=== PATIENT | female | born 1955 | race African-American/Black ===

== ENCOUNTER 2019-02-23 03:32 | Emergency (ER) | payer OTHER ==
[2019-02-23] MEDS ORDERED: NS 0.9% 1000 ML** 1,000 ML IV ONE (03:50)
[2019-02-23] MEDS ORDERED: diPHENhydraMINE IV* 50 MG/ML 1 ml VIAL (BENADRYL) IV ONE (03:50)
[2019-02-23] MEDS ORDERED: methylPREDNISolone 125 MG* 2 ML VIAL IV ONE (03:50)
--- NOTE | 2019-02-23 03:50 | ED ---
Allergic Reaction/Systemic - HPI Summary HPI Summary: A 63 y/o female presents to [facility] with a chief complaint of a possible allergic reaction today since 03:00 today. She reports that her lips and tongue are swelling. She denies eye swelling. She notes some difficulty swallowing, claiming that it feels like there is something in her throat. At triage she rated her pain as a 0/10 in severity. She reports taking Metoprolol and Lisinopril, saying that she has been taking Lisinopril for months. She says that a couple weeks ago her lips swelled up but it went away so she did not come to the ED. - History of Current Complaint Chief Complaint: EDAllergicReaction Time Seen by Provider: 02/23/19 03:44 Hx Obtained From: Patient Onset/Duration: Sudden Onset, Started hours ago, Still Present Timing: Constant Severity Initially: Mild Severity Currently: Mild Pain Intensity: 0 Pain Scale Used: 0-10 Numeric Location: Other - lips and tongue Character: Swelling Aggravating Factor(s): Nothing Alleviating Factor(s): Nothing Associated Signs And Symptoms: Positive: Other: - difficulty swallowing - Allergies/Home Medications Allergies/Adverse Reactions: Allergies Allergy/AdvReac Type Severity Reaction Status Date / Time lisinopril Allergy Airway Verified 02/23/19 03:50 Obstruction PMH/Surg Hx/FS Hx/Imm Hx Cardiovascular History: Reports: Hx Hypertension Denies: Hx Pacemaker/ICD Sensory History: Denies: Hx Hearing Aid Psychiatric History: Denies: Hx Panic Disorder - Surgical History Surgery Procedure, Year, and Place: HYSTERECTOMY Infectious Disease History: No Infectious Disease History: Denies: Traveled Outside the [place] in Last 30 Days - Family History Known Family History: Negative: Blood Disorder - Social History Alcohol Use: None Substance Use Type: Reports: Marijuana Hx Tobacco Use: Yes Smoking Status (MU): Smoker, Current Status Unknown Review of Systems Negative: Fever Eyes: Negative - eye swelling Positive: Other - positive: lip and tongue swelling, difficutly swallowing All Other Systems Reviewed And Are Negative: Yes Physical Exam - Summary Physical Exam Summary: Appearance: -[place] woman in no acute distress Skin: Warm, dry, no obvious rash Eyes: sclera anicteric, no conjunctival pallor ENT: Swelling of lips, particularly left side, Did not appreciate any lingual edema or swelling of soft palate, Voice is slightly dysarthric, at times she appears to cough her own secretions, no stridor or signs of upper airway obstructions. Neck: Supple, nontender Respiratory: Clear to auscultation, no signs of respiratory distress Cardiovascular: Normal S1, S2. No murmurs. Normal distal pulses in tibial and radial bilaterally. Abdomen: Soft, nontender, normal active bowel sounds present Musculoskeletal: Normal, Strength/ROM Intact Neurological: A&Ox3, awake and alert, mentation is normal, speech is fluent and appropriate Psychiatric: affect is normal, does not appear anxious or depressed Triage Information Reviewed: Yes Vital Signs On Initial Exam: Initial Vitals Temp Pulse Resp BP Pulse Ox 97.7 F 65 19 212/100 99 02/23/19 03:35 02/23/19 03:35 02/23/19 03:35 02/23/19 03:35 02/23/19 03:35 Vital Signs Reviewed: Yes Diagnostics - Vital Signs Vital Signs Temp Pulse Resp BP Pulse Ox 02/23/19 03:35 97.7 F 65 19 212/100 99 - Laboratory Result Diagrams: 02/23/19 04:01 02/23/19 04:01 Lab Statement: Any lab studies that have been ordered have been reviewed, and results considered in the medical decision making process. Allergic Reaction Course/Dx - Course Course Of Treatment: A 63 y/o female presents to [facility] with a chief complaint of a possible allergic reaction today since 03:00 today. She reports that her lips and tongue are swelling. The physical exam revealed that the patient is an -[place] woman in no acute distress, has swelling of lips, particularly left side. Did not appreciate any lingual edema or swelling of soft palate. Voice is slightly dysarthric, at times she appears to cough her own secretions, no stridor or signs of upper airway obstructions. In the ED course the patient was given Solu-Medrol IV and Sodium Chloride IV. Blood work and chemistries obtained and are WNL. The patient will be discharged and was instructed to stop taking Lisinopril and follow up with her PCP. The patient is agreeable with this plan. 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 Discharge - Sign-Out/Discharge Documenting (check all that apply): Patient Departure - DC Patient Received Moderate/Deep Sedation with Procedure: No - Discharge Plan Condition: Stable Disposition: HOME Patient Education Materials: Angioedema (ED) Referrals: Adele Marino MD [Primary Care Provider] - Additional Instructions: The trouble you are having is an occasional side effect of the lisinopril you take for your blood pressure. You will have to stop this medication and in the future avoid any medication in this class, called KATTY inhibitors, as well as any medications in a related class of blood pressure medicines called ARBs. The reaction should subside over the next few days as the lisinopril works out of your system. The plasma we gave you tonight will often prevent the reaction from worsening until that happens. If your symptoms worsen return here as I would not expect that. - Billing Disposition and Condition Condition: STABLE Disposition: Home - Attestation Statements Document Initiated by Doris: Yes Documenting Scribe: Jese Akhtar Provider For Whom Doris is Documenting (Include Credential): Lam Miller MD Scribe Attestation: I, Jese Akhtar, scribed for Lam Miller MD on 02/26/19 at 0813. Scribe Documentation Reviewed: Yes Provider Attestation: The documentation as recorded by the Jese villafana accurately reflects the service I personally performed and the decisions made by me, Lam Miller MD Status of Scribkirsten Document: Viewed
[2019-02-23 04:09] LABS: ABS Basophils 0.1 10^3/ul (0-0.2); ABS Eosinophils 0.1 10^3/ul (0-0.6); ABS Monocytes 0.8 10^3/ul (0-0.8); ABS Neutrophils 5.5 10^3/ul (1.5-7.7); Eosinophil % 0.6 %; Hematocrit 44 % (35-47); Hemoglobin 15.3 g/dL (12.0-16.0); Lymphocyte % 38.2 %; Mean Corpuscular HGB Conc 34 g/dL (31-36); Mean Corpuscular Hemoglobin 33 pg (27-31); Mean Corpuscular Volume 97 fL (80-97); Mean Platelet Volume 7.8 fL (7.4-10.4); Nucleated Red Blood Cells % 0.2; Platelet Count 192 10^3/uL (150-450); Red Cell Distribution Width 13 % (10-15); White Blood Count 10.5 10^3/uL (3.5-10.8)
[2019-02-23 04:32] LABS: Albumin 3.5 g/dL (3.2-5.2); Albumin/Globulin Ratio 0.9 (1-3); BUN/Creatinine Ratio 12.9 (8-20); Calcium 9.4 mg/dL (8.6-10.3); EGFR Non-African American 67.8 (>60); Globulin 3.7 g/dL (2-4); Potassium 3.3 mmol/L (3.5-5.0); Total Bilirubin 0.3 mg/dL (0.2-1.0); Total Protein 7.2 g/dL (6.4-8.9)
[2019-02-23 06:36] VITALS: BP 152/83
== END 2019-02-23 06:35 | disposition home or self-care (01) ==
LOC: ED 03:32
DX: T78.3XXA Angioneurotic edema, initial encounter (principal); T44.5X5A Adverse effect of predominantly beta-adrenoreceptor agonists, initial encounter; I10 Essential (primary) hypertension; Z88.8 Allergy status to other drugs, medicaments and biological substances; Z79.899 Other long term (current) drug therapy; F17.210 Nicotine dependence, cigarettes, uncomplicated
CPT/HCPCS: 36415; 80053; 85025; 86850; 86900; 86901; 86927; 96361; 96374; 96375; 99283; J1200; J2930; P9017